=== PATIENT | male | born 1995 | race Caucasian/White ===

== ENCOUNTER 2022-02-01 10:58 | Emergency (ER) | payer SELFPAY ==
[2022-02-01] MEDS ORDERED: Sodium Chloride 0.9% 1,000 ML IV ONE ×2 (11:13→12:07)
[2022-02-01] MEDS ORDERED: Ondansetron 4 MG/2 ML SDV IVPUSH ONE (11:13)
[2022-02-01 12:42] LABS: CORONAVIRUS COVID-19 NAA NEGATIVE (NEGATIVE); INFLUENZA A NAA NEGATIVE (NEGATIVE); INFLUENZA B NAA NEGATIVE (NEGATIVE)
[2022-02-01] MEDS ORDERED: Promethazine 25 MG/ML SDV IM ONE (12:48)
[2022-02-01 13:26] LABS: POTASSIUM,K 2.6 mmol/L (3.5-5.1)
[2022-02-01] MEDS ORDERED: Potassium Chloride 20 MEQ Tab.ER PO ONE (13:39)
[2022-02-01] MEDS ORDERED: Sodium Chloride 0.9% 500 ML IV ONE (14:00)
[2022-02-01] MEDS: Potassium Chloride 100 ML IV SCH ×2 (14:02→16:04)
[2022-02-01] MEDS ORDERED: Loperamide 2 MG Cap PO ONE (14:26)
[2022-02-01] MEDS ORDERED: Acetaminophen/Codeine 300-30 MG Tab PO ONE (17:10)
[2022-02-01 17:53] LABS: CARBON DIOXIDE,CO2 26.5 mmol/L (21.0-32.0); POTASSIUM,K 3.4 mmol/L (3.5-5.1)
== END 2022-02-01 18:19 | disposition home or self-care (01) ==
LOC: MW.ED 10:58
DX: E86.0 Dehydration (principal); K52.9 Noninfective gastroenteritis and colitis, unspecified; E87.6 Hypokalemia; Z20.822 Contact with and (suspected) exposure to COVID-19
CPT/HCPCS: 0240U; 36415; 80048; 80053; 81001; 83690; 83735; 85025; 87045; 87046; 87328; 87329; 87449; 87899; 93005; 96361; 96365; 96366; 96372; 96375; 99284; A9270; J2405; J2550; J3480; J7030; J7040